=== PATIENT | female | born 1995 | race Caucasian/White ===

== ENCOUNTER 2017-04-18 07:18 | Inpatient (IN) | payer OTHER ==
[2017-04-18] VITALS (14 sets, daily range): BP systolic 96–119; BP diastolic 51–80
[~2017-04-18] VITALS: Ht 157.5 cm; Wt 84.0 kg
[2017-04-18 10:33] LABS: EOSINOPHIL (%) 1.6 % (0-5); EOSINOPHIL COUNT 0.2 K/uL (0-0.3); HEMATOCRIT 31.4 % (36.0-46.0); IMMATURE GRANULOCYTE (%) 0.7 % (0.0-0.7); IMMATURE GRANULOCYTE COUNT 0.1 K/uL; INSTRUMENT ABS NEUTROPHIL CT 8.4 K/uL; LYMPHOCYTE COUNT 2.3 K/uL (1.0-2.8); MCH 28.7 PG (29.0-34.0); MCHC 32.8 G/DL (30.0-36.0); MCV 87.5 FL (83-99); MEAN PLAT.VOLUME 11.7 uM^3 (9.5-12.4); MONOCYTE (%) 9.8 % (3-12); MONOCYTE COUNT 1.2 K/uL (0-0.8); NEUTROPHIL (%) 69.1 % (45-76); NEUTROPHIL COUNT 8.4 K/uL (1.8-6.4); PLATELET COUNT 330 K/uL (156-360); RBC DIS.WIDTH-CV 13.1 % (11.8-14.6); RBC DIS.WIDTH-SD 41.4 % (39-53); RED BLOOD COUNT 3.59 M/uL (3.80-5.20); WHITE BLOOD COUNT 12.1 K/uL (4.1-10.2)
[2017-04-19] VITALS (41 sets, daily range): BP systolic 103–144; BP diastolic 56–84
[2017-04-20] VITALS (11 sets, daily range): BP systolic 94–116; BP diastolic 52–67
[2017-04-20 12:28] LABS: HEMATOCRIT 22.4 % (36.0-46.0); MCH 28.4 PG (29.0-34.0); MCHC 32.6 G/DL (30.0-36.0); MCV 87.2 FL (83-99); MEAN PLAT.VOLUME 11.3 uM^3 (9.5-12.4); PLATELET COUNT 242 K/uL (156-360); RBC DIS.WIDTH-CV 13.2 % (11.8-14.6); RBC DIS.WIDTH-SD 41.5 % (39-53)
[2017-04-20 12:29] LABS: RED BLOOD COUNT 2.57 M/uL (3.80-5.20); WHITE BLOOD COUNT 25.3 K/uL (4.1-10.2)
[2017-04-20 13:15] LABS: EOSINOPHIL (%) 0 % (0-5); HEMATOLOGY COMMENT 1 SMEAR COMPATIBLE; IMMATURE GRANULOCYTE (%) 0.9 % (0.0-0.7); IMMATURE GRANULOCYTE COUNT 0.2 K/uL; INSTRUMENT ABS NEUTROPHIL CT 21.1 K/uL; LYMPHOCYTE COUNT 2.1 K/uL (1.0-2.8); MONOCYTE (%) 7.4 % (3-12); MONOCYTE COUNT 1.9 K/uL (0-0.8); NEUTROPHIL (%) 83.5 % (45-76); NEUTROPHIL COUNT 21.1 K/uL (1.8-6.4); PLAT.SUFFICIENCY ADEQUATE
[2017-04-21 03:00] VITALS: BP 98/54
[2017-04-21 07:43] LABS: BASOPHIL COUNT 0.1 K/uL (0-0.1); EOSINOPHIL (%) 0.7 % (0-5); EOSINOPHIL COUNT 0.2 K/uL (0-0.3); HEMATOCRIT 21.9 % (36.0-46.0); IMMATURE GRANULOCYTE (%) 0.8 % (0.0-0.7); IMMATURE GRANULOCYTE COUNT 0.2 K/uL; INSTRUMENT ABS NEUTROPHIL CT 17.9 K/uL; LYMPHOCYTE COUNT 3.1 K/uL (1.0-2.8); MCH 27.8 PG (29.0-34.0); MCHC 31.5 G/DL (30.0-36.0); MCV 88.3 FL (83-99); MEAN PLAT.VOLUME 10.7 uM^3 (9.5-12.4); MONOCYTE COUNT 1.6 K/uL (0-0.8); NEUTROPHIL (%) 77.9 % (45-76); NEUTROPHIL COUNT 17.9 K/uL (1.8-6.4); PLATELET COUNT 214 K/uL (156-360); RBC DIS.WIDTH-CV 13.5 % (11.8-14.6); RBC DIS.WIDTH-SD 43.8 % (39-53); RED BLOOD COUNT 2.48 M/uL (3.80-5.20)
[2017-04-21 15:29] VITALS: BP 118/66
[2017-04-21 22:18] VITALS: BP 115/65
[2017-04-22 03:00] VITALS: BP 132/60
[2017-04-22] MEDS ORDERED: IBUPROFEN800 MG PO (06:26)
[2017-04-22] MEDS ORDERED: CHROMAGEN,1 CAPSULE PO (06:26)
[2017-04-22] MEDS ORDERED: ENDOCET 5-3251 EACH PO (06:26)
== END 2017-04-22 10:13 | disposition home or self-care (01) | DRG 765 ==
LOC: LDRP-OP → 2WEST 07:19 → LDRP-OP 16:02 → 2WEST 04-19 23:31 → LDRP-OP 05-11 10:54
PROVIDERS: Advanced Practice Midwife; Obstetrics & Gynecology Obstetrics
DX: O48.0 Post-term pregnancy (principal); O62.1 Secondary uterine inertia; Z3A.41 41 weeks gestation of pregnancy; Z37.0 Single live birth; O75.81 Maternal exhaustion complicating labor and delivery; O33.9 Maternal care for disproportion, unspecified; O99.02 Anemia complicating childbirth; D62 Acute posthemorrhagic anemia
CPT/HCPCS: 85025; 86900; 86901; C1755; G0378; J0595; J0690; J1100; J1885; J2274; J3010; J7050; J7120; Q0169